=== PATIENT | male | born 1940 | race Caucasian/White ===

== ENCOUNTER → 2016-07-31 | Outpatient (CLI) | payer OTHER, BC ==
[~2016-07-31] MED LIST: ADDERALL 20 MG20 M1 PO; ALBUTEROL2.5 MG/0.1 INH; ASPIRIN81 M2 PO; AVODART0.5 MG PO; CRESTOR10 MG PO; CYMBALTA60 MG PO; GABAPENTIN100 MG PO; MICARDIS40 MG PO; TAMSULOSIN HCL0.4 M1 PO
== END ==
LOC: RAD 13:25
DX: R06.02 Shortness of breath (principal)